=== PATIENT | male | born 1965 | race Caucasian/White ===

== ENCOUNTER 2018-01-03 12:54 | Emergency (ER) | payer SELFPAY ==
--- NOTE | 2018-01-03 13:42 | ED Physician Chart ---
ED Chief Complaint/HPI - Patient Information Date Seen:: 01/03/18 Time Seen:: 13:10 Chief Complaint:: trauma left large toe History of Present Illness:: At about 1220 today patient cut his left large toe with a Skil saw. He was wearing leather shoes Vitals:: Vital Signs - 8 hr 01/03/18 13:31 Temp 97.4 F HR 67 RR 20 BP 145/81 O2 Sat % 97 Historian:: Patient Review:: Nurse's Note Reviewed ED Review of Systems - Review of Systems General/Constitutional: No fever, No chills Skin: Skin lesions Head: No headache Eyes: No loss of vision ENT: No earache Neck: No neck pain Cardio Vascular: No chest pain, No palpitations Pulmonary: No SOB GI: No nausea, No vomiting, No diarrhea Musculoskeletal: No bone or joint pain, No back pain, No muscle pain Psychiatric: No prior psych history, No depression, No anxiety Hematopoietic: No bruising Allergic/Immuno: No urticaria Neurological: No syncope, No focal symptoms ED Past Medical History - Past Medical History Past Medical History: No significant medical hx Family History: None Social History: Non Smoker, No Alcohol Surgical History: None Psychiatricy History: None Medication: None Family Medical History - Family Member Mother History Unknown: Yes ED Physical Exam - Physical Examination General/Constitutional: Awake Head: Atraumatic Eyes: Lids, conjuctiva normal Skin: Nl inspection, No rash ENMT: External ears, nose nl Neck: No nuchal rigidity Respiratory: Nl effort/Exclusion, Clear to Auscultation Cardio Vascular: RRR, No murmur, gallop, rubs GI: No tenderness/rebounding/guarding, Nondistended, No McBurney tenderness : No CVA tenderness Other Extremities comments:: Left large toe: About one fourth of the medial distal nail is avulsed; there is a 1 1/2 cm vertical abrasion of the dorsum extending distally from the nail bed Neuro/Psych: Alert/oriented ED Septic Shock - . Is Septic Shock (SBP<90, OR Lactate>4 mmol\L) present?: No - <6hrs of presentation: Vital Signs: Vital Signs - 8 hr 01/03/18 13:31 Temp 97.4 F HR 67 RR 20 BP 145/81 O2 Sat % 97 ED Reassessment (Disposition) - Reassessment Reassessment:: Abrasion left large toe cleansed Reassessment Condition:: Unchanged - Diagnosis Diagnosis:: Abrasion left large toe - Aftercare/Follow up Instructions Aftercare/Follow-Up Instructions:: Refer to Discharge Instructions - Patient Disposition Discharge/Transfer:: Home Condition at Disposition:: Stable, Unchanged
== END 2018-01-03 14:30 | disposition home or self-care (01) ==
LOC: ER 12:54
DX: S90.412A Abrasion, left great toe, initial encounter (principal); W45.8XXA Other foreign body or object entering through skin, initial encounter; Y93.89 Activity, other specified; Y92.89 Other specified places as the place of occurrence of the external cause; Y99.8 Other external cause status
CPT/HCPCS: Z7502